=== PATIENT | female | born 1950 | race Caucasian/White ===

== ENCOUNTER 2021-04-10 09:49 | Outpatient (CLI) | payer MEDICARE | END 2021-04-10 09:50 | disposition home or self-care (01) | LOC: CSHMAMMO 09:49 | PROVIDERS: ATTEND Family Medicine | DX: Z12.31 Encounter for screening mammogram for malignant neoplasm of breast (principal); Z78.0 Asymptomatic menopausal state; Z13.820 Encounter for screening for osteoporosis; M85.89 Other specified disorders of bone density and structure, multiple sites | CPT/HCPCS: 77063; 77067; 77080 ==

== ENCOUNTER 2021-04-29 09:03 | Outpatient (CLI) | payer MEDICARE | END 2021-04-29 09:04 | disposition home or self-care (01) | LOC: CSHMAMMO 09:03 | PROVIDERS: ATTEND Family Medicine | DX: C50.511 Malignant neoplasm of lower-outer quadrant of right female breast (principal) | CPT/HCPCS: 19083; 76642; 77065; G0279; 88305; 88341; 88342 ==

== ENCOUNTER 2021-05-11 10:49 | Outpatient (CLI) | payer MEDICARE, OTHER ==
[2021-05-11 13:49] LABS: Anion Gap 18 mmol/L (10-20); BUN (Urea Nitrogen) 20 mg/dL (9.8-20.1); Calc. Creatinine Clearance 0 mL/min (70-130); Calcium 9.5 mg/dL (7.8-10.44); Carbon Dioxide 21 mmol/L (23-31); Chloride 105 mmol/L (98-107); Glucose 174 mg/dL (83-110); Potassium 4.4 mmol/L (3.5-5.1); Sodium 140 mmol/L (136-145)
[2021-05-12 14:46] LABS: SARS-CoV-2 PCR by NAA Not Detected (NotDetected)
== END 2021-05-11 10:50 | disposition home or self-care (01) ==
LOC: CSHLAB 10:49
PROVIDERS: ATTEND Surgery
DX: Z01.818 Encounter for other preprocedural examination (principal); Z20.822 Contact with and (suspected) exposure to COVID-19; R94.31 Abnormal electrocardiogram [ECG] [EKG]
CPT/HCPCS: 80048; 93005; 93010; U0003; U0005

== ENCOUNTER 2021-05-14 06:36 | Day surgery (SDC) | payer MEDICARE, OTHER ==
[2021-05-12 10:55] VITALS: BMI 52.6
[2021-05-14] MEDS ORDERED: Lidocaine 1% MPF 2 ML VIAL ONE (09:01)
[2021-05-14] MEDS ORDERED: Bupivacaine PF 0.5% 30 ML VIAL ONE (11:47)
[2021-05-14] MEDS ORDERED: Isosulfan Blue 50 MG/5 ML VIAL ONE (11:47)
[2021-05-14] MEDS ORDERED: EPINEPHrine 1 MG/ML AMP ONE (11:47)
[2021-05-14] MEDS ORDERED: PROPOFOL 20 ML ONE (13:11)
[2021-05-14] MEDS ORDERED: Fentanyl 100 MCG/2 ML VIAL ONE ×2 (13:12→14:49)
[2021-05-14] MEDS ORDERED: Lidocaine 2% Jelly 5 ML TUBE ONE (13:15)
[2021-05-14] MEDS ORDERED: ceFAZolin 2 GM/Dextrose 50 ML IVPB ONE (13:16)
[2021-05-14] MEDS ORDERED: Glycopyrrolate 0.2 MG/ML 5 ML SYRINGE ONE (14:25)
[2021-05-14] MEDS ORDERED: Ondansetron PF 4 MG/2 ML Vial ONE (14:26)
== END 2021-05-14 16:40 | disposition home or self-care (01) ==
LOC: CSHSDC 06:36
PROVIDERS: ATTEND Surgery
DX: C50.511 Malignant neoplasm of lower-outer quadrant of right female breast (principal); Z17.0 Estrogen receptor positive status [ER+]; E66.01 Morbid (severe) obesity due to excess calories; Z68.43 Body mass index [BMI] 50.0-59.9, adult; I10 Essential (primary) hypertension; E11.9 Type 2 diabetes mellitus without complications; Z79.899 Other long term (current) drug therapy; Z79.84 Long term (current) use of oral hypoglycemic drugs
CPT/HCPCS: 19125; 19281; 38525; 38900; 76098; 78195; 82962; A9541; C1713; C1776; Q9968; 36416; 88307; 88342; J0171; J0690; J2405; J2704; J3010; S0020

== ENCOUNTER 2021-05-26 09:18 | Outpatient (CLI) | payer MEDICARE ==
[2021-05-27 12:47] LABS: SARS-CoV-2 PCR by NAA Not Detected (NotDetected)
== END 2021-05-26 09:19 | disposition home or self-care (01) ==
LOC: CSHLAB 09:18
PROVIDERS: ATTEND Surgery
DX: Z20.822 Contact with and (suspected) exposure to COVID-19 (principal); C50.411 Malignant neoplasm of upper-outer quadrant of right female breast
CPT/HCPCS: U0003; U0005

== ENCOUNTER 2021-05-28 06:34 | Day surgery (SDC) | payer MEDICARE ==
[2021-05-25 12:09] VITALS: BMI 51.0
[2021-05-28] MEDS ORDERED: EPINEPHrine 1 MG/ML AMP ONE (08:32)
[2021-05-28] MEDS ORDERED: Bupivacaine PF 0.5% 30 ML VIAL ONE (08:32)
[2021-05-28] MEDS ORDERED: Lidocaine 1% MPF 2 ML VIAL ONE (08:38)
[2021-05-28] MEDS ORDERED: ceFAZolin 2 GM/Dextrose 50 ML IVPB ONE (08:55)
[2021-05-28] MEDS ORDERED: Lidocaine 1% PF 5 ML VIAL ONE (09:14)
[2021-05-28] MEDS ORDERED: PROPOFOL 20 ML ONE ×2 (09:14→10:04)
[2021-05-28] MEDS ORDERED: Fentanyl 100 MCG/2 ML VIAL ONE (09:14)
[2021-05-28] MEDS ORDERED: Rocuronium Bromide 10 MG/ML (10ML VIAL) ONE (09:14)
[2021-05-28] MEDS ORDERED: Ondansetron PF 4 MG/2 ML Vial ONE (09:52)
[2021-05-28] MEDS ORDERED: Ketorolac Tromethamine 30 MG/ML VIAL ONE (09:56)
[2021-05-28] MEDS ORDERED: Glycopyrrolate 0.2 MG/ML 5 ML SYRINGE ONE (10:00)
[2021-05-28] MEDS ORDERED: SUGAMMADEX SODIUM 200 MG/2 ML VIAL ONE (10:22)
[2021-05-28] MEDS ORDERED: Acetaminophen 325 MG TAB PO PRN (11:06)
[2021-05-28] MEDS ORDERED: HYDROcodone/Acetaminophen 5/325 mg Tablet PO PRN (11:06)
== END 2021-05-28 11:45 | disposition home or self-care (01) ==
LOC: CSHSDC 06:34
PROVIDERS: ATTEND Surgery
PROC: 0HBT0ZZ Excision of Right Breast, Open Approach (ICD-10-PCS; principal; 2021-05-28)
DX: D05.11 Intraductal carcinoma in situ of right breast (principal); I10 Essential (primary) hypertension; E78.5 Hyperlipidemia, unspecified; E11.42 Type 2 diabetes mellitus with diabetic polyneuropathy; E66.01 Morbid (severe) obesity due to excess calories; Z68.43 Body mass index [BMI] 50.0-59.9, adult; Z17.0 Estrogen receptor positive status [ER+]; Z79.82 Long term (current) use of aspirin; Z79.84 Long term (current) use of oral hypoglycemic drugs; Z79.899 Other long term (current) drug therapy; Z88.2 Allergy status to sulfonamides
CPT/HCPCS: 36416; 88307; 88341; 88342; J0171; J0690; J1885; J2405; J2704; J3010; S0020

== ENCOUNTER 2021-06-19 09:14 | Outpatient (CLI) | payer MEDICARE ==
[2021-06-20] LABS: SARS-CoV-2 PCR by NAA Not Detected (NotDetected)
== END 2021-06-19 09:15 | disposition home or self-care (01) ==
LOC: CSHLAB 09:14
PROVIDERS: ATTEND Surgery
DX: Z20.822 Contact with and (suspected) exposure to COVID-19 (principal); C50.511 Malignant neoplasm of lower-outer quadrant of right female breast
CPT/HCPCS: U0003; U0005

== ENCOUNTER 2021-06-24 05:26 | Day surgery (SDC) | payer MEDICARE ==
[2021-06-18 16:08] VITALS: BMI 50.6
[2021-06-24] MEDS ORDERED: EPINEPHrine 1 MG/ML AMP ONE (06:43)
[2021-06-24] MEDS ORDERED: Bupivacaine 0.25% HCL 30 ML VIAL ONE (06:43)
[2021-06-24] MEDS ORDERED: Lidocaine 1% MPF 2 ML VIAL ONE (06:45)
[2021-06-24] MEDS ORDERED: PROPOFOL 20 ML ONE (06:54)
[2021-06-24] MEDS ORDERED: Ondansetron PF 4 MG/2 ML Vial ONE (06:54)
[2021-06-24] MEDS ORDERED: Fentanyl 100 MCG/2 ML VIAL ONE (06:56)
[2021-06-24] MEDS ORDERED: ceFAZolin 2 GM/Dextrose 50 ML IVPB ONE (07:01)
[2021-06-24] MEDS ORDERED: Esmolol 100 MG/10 ML VIAL ONE (07:26)
[2021-06-24] MEDS ORDERED: Labetalol HCl 100 MG/20 ML VIAL ONE (07:42)
[2021-06-24] MEDS ORDERED: HYDROcodone/Acetaminophen 5/325 mg Tablet PO PRN (08:15)
[2021-06-24] MEDS ORDERED: Acetaminophen 325 MG TAB PO PRN (08:15)
== END 2021-06-24 08:50 | disposition home or self-care (01) ==
LOC: CSHSDC 05:26
PROVIDERS: ATTEND Surgery
DX: C50.511 Malignant neoplasm of lower-outer quadrant of right female breast (principal)
CPT/HCPCS: 36561; C1788; J0171; J0690; J1642; J2405; J2704; J3010; S0020

== ENCOUNTER 2022-05-05 08:40 | Outpatient (CLI) | payer MEDICARE | END 2022-05-05 08:41 | disposition home or self-care (01) | LOC: CSHMAMMO 08:40 | PROVIDERS: ATTEND Internal Medicine Hematology & Oncology | DX: Z13.820 Encounter for screening for osteoporosis (principal); C50.811 Malignant neoplasm of overlapping sites of right female breast; T38.6X5A Adverse effect of antigonadotrophins, antiestrogens, antiandrogens, not elsewhere classified, initial encounter; M85.89 Other specified disorders of bone density and structure, multiple sites | CPT/HCPCS: 77066; 77080; G0279 ==

== ENCOUNTER 2023-05-27 09:15 | Outpatient (CLI) | payer MEDICARE | END 2023-05-27 09:16 | disposition home or self-care (01) | LOC: CSHMAMMO 09:15 | PROVIDERS: ATTEND Surgery | DX: Z08 Encounter for follow-up examination after completed treatment for malignant neoplasm (principal); Z85.3 Personal history of malignant neoplasm of breast | CPT/HCPCS: 77066; G0279 ==

== ENCOUNTER 2024-05-29 09:35 | Outpatient (CLI) | payer MEDICARE | END 2024-05-29 09:36 | disposition home or self-care (01) | LOC: CSHMAMMO 09:35 | PROVIDERS: ATTEND Surgery | DX: Z08 Encounter for follow-up examination after completed treatment for malignant neoplasm (principal); Z85.3 Personal history of malignant neoplasm of breast | CPT/HCPCS: 77066; G0279 ==

== ENCOUNTER 2024-12-12 12:48 | Outpatient (CLI) | payer MEDICARE | END 2024-12-12 12:49 | disposition home or self-care (01) | LOC: CSHMAMMO 12:48 | PROVIDERS: ATTEND Internal Medicine Hematology & Oncology | DX: M81.0 Age-related osteoporosis without current pathological fracture (principal); C50.811 Malignant neoplasm of overlapping sites of right female breast; T38.6X5A Adverse effect of antigonadotrophins, antiestrogens, antiandrogens, not elsewhere classified, initial encounter; M85.88 Other specified disorders of bone density and structure, other site | CPT/HCPCS: 77080 ==